=== PATIENT | male | born 1975 | race Caucasian/White ===

== ENCOUNTER 2020-06-06 20:09 | Emergency (ER) | payer OTHER ==
[~2020-06-06] VITALS: Ht 160 cm; Wt 86.2 kg
[2020-06-06 20:15] VITALS: BP_SYST 153
[2020-06-06 20:35] VITALS: BP_SYST 153
== END 2020-06-06 20:35 | disposition home or self-care (01) ==
LOC: SED 20:09
DX: E11.65 Type 2 diabetes mellitus with hyperglycemia (principal)
CPT/HCPCS: 99283